=== PATIENT | male | born 1960 | race Caucasian/White ===

== ENCOUNTER 2021-01-08 12:53 | Outpatient (REF) | payer OTHER, SELFPAY ==
--- NOTE | ~2021-01-08 | XR_ITS ---
EXAMINATION: XR CHEST CLINICAL INFORMATION: R05.9 - Cough, unspecified COMPARISON: None TECHNIQUE: 2 views of the chest were obtained. FINDINGS: There is mild coarsening bronchovascular markings right base with subtle increased attenuation suspicious for early infiltrate. There are no air bronchograms. The remainder of the lungs are clear. There is no effusion. The heart is normal in size. The costophrenic sulci are clear. The vascularity is normal. The hilar and mediastinal contours are unremarkable. There is been prior rodding thoracolumbar spine. XR/XR chest 2V IMPRESSION: Mild coarsening bronchovascular markings right base with subtle increased attenuation suspicious for early infiltrate. No effusion.
[2021-01-08 14:42] LABS: Influenza A PCR NEGATIVE (Negative); Influenza B PCR NEGATIVE (Negative); Resp Syncy Virus RNA Qual PCR NEGATIVE (Negative); SARS COV2 PCR INHOUSE NEGATIVE (Negative)
== END 2021-01-08 12:54 | disposition home or self-care (01) ==
LOC: HO.LAB 12:53
PROVIDERS: Visit Provider Physician Assistant Medical
DX: J06.9 Acute upper respiratory infection, unspecified (principal); R05.9 Cough, unspecified; Z20.822 Contact with and (suspected) exposure to COVID-19
CPT/HCPCS: 0241U; 36415; 71046

== ENCOUNTER 2021-01-08 13:02 | Outpatient (REF) | payer OTHER, SELFPAY | END 2021-01-08 13:03 | disposition home or self-care (01) | LOC: HO.HMGCX 13:02 | PROVIDERS: PCP Internal Medicine; Visit Provider Physician Assistant Medical | DX: Z13.89 Encounter for screening for other disorder (principal) ==

== ENCOUNTER 2021-05-27 14:01 | Outpatient (REF) | payer OTHER, SELFPAY ==
--- NOTE | ~2021-05-27 | XR_ITS ---
EXAMINATION: XR CHEST CLINICAL INFORMATION: Chest pain. COMPARISON: Chest 01/08/2021 TECHNIQUE: 2 views of the chest were obtained. FINDINGS: The lungs are well-expanded and clear. The heart size and pulmonary vascularity is normal. There is a solitary [place] extending from upper thoracic spine to the lumbar spine with the distal end not in the [id number]. Moderate dextro scoliosis dorsal lumbar spine is noted. XR/XR chest 2V IMPRESSION: No acute cardiopulmonary process seen. There is moderate dextroscoliosis dorsolumbar spine.
== END 2021-05-27 14:02 | disposition home or self-care (01) ==
LOC: HO.HMGCX 14:01
PROVIDERS: Visit Provider Internal Medicine
DX: R07.9 Chest pain, unspecified (principal)
CPT/HCPCS: 71046

== ENCOUNTER 2024-04-29 12:08 | Outpatient (REF) | payer OTHER, SELFPAY ==
[2024-04-29 16:21] LABS: Influenza A PCR POSITIVE (Negative); Influenza B PCR NEGATIVE (Negative); Resp Syncy Virus RNA Qual PCR NEGATIVE (Negative); SARS COV2 PCR INHOUSE NEGATIVE (Negative)
== END 2024-04-29 12:09 | disposition home or self-care (01) ==
LOC: HO.LNP 12:08
PROVIDERS: PCP Internal Medicine; Visit Provider Physician Assistant
DX: R09.89 Other specified symptoms and signs involving the circulatory and respiratory systems (principal); R05.9 Cough, unspecified; R06.02 Shortness of breath
CPT/HCPCS: 0241U; 99212

== ENCOUNTER 2024-04-29 12:08 | Outpatient (AMB) | payer OTHER, SELFPAY ==
--- NOTE | 2024-04-29 12:16 | AM.OFFWIN_ITS ---
Intake Vital Signs 04/29/24 12:25 BP 140/100 H Blood Pressure Location Rt brachial Position Sitting Pulse 130 H Pulse Source Pulse Oximeter Pulse Oximetry (%) 96 Oxygen Delivery Method Room Air Intake Visit Reasons: EP-severe cough, sob Allergies No Known Allergies Allergy (Verified 05/27/21 13:38) HPI HPI Comments History of Present Illness Details 63 year old male presents w/ URI sx x 2- 3 days. Fatigue, malaise, myalgias and cough. He reports whats bothering him most is the cough. He doesnt feel well at all he states. Feels like his yearly cold. He reports he is coughing so much he feels like hes going to vomit. No sick contacts. No CP, headache, vision changes, dizziness, weakness, fevers, chills PE diminished bs b/l, bibasilar crackles and wheezing Hx and pe concerning for bronchitits, vs viral illness. No signs of acs, pe, ards, pna. Plan- viral test, will send atbx, steroids, inhaler. Return w/ new or worsening sx. or go to the ED Review of Systems Const All systems reviewed & are unremarkable except as noted in HPI and below Physical Exam Vital Signs: vss ambulatory O2 94% Appearance: Alert.? Oriented X3.? No acute distress.? Head: Normocephalic, atraumatic, no step-offs or deformities Eyes: Pupils equal, round and reactive to light.? CVS: Normal heart rate and rhythm.? Pulses normal.? Respiratory: No respiratory distress.? Breath sounds diminished b/l, faint bibasilar crackles and expiratory wheezing b/l.? Abdomen: Soft and nontender.? Skin: Skin warm and dry.? Normal skin color.? Normal skin turgor.? Extremities: No lower extremity edema.? No calf ttp. 5/5 strength to bilateral upper and lower extremities Neuro: Oriented X 3.? No motor deficit.? No sensory deficit. CN 2-12 intact Assessment & Plan Assessment & Plan (1) Bronchitis: Code(s): J40 - Bronchitis, not specified as acute or chronic Plan Take your medications as prescribed. If you were prescribed antibiotics today, it is important that you take your medication to their entirety, do not skip any doses, do not finish them early. Follow-up with your primary care provider this week. Return to the emergency department with new or worsening symptoms. In case of emergency call 911 Orders: Orders SARS-CoV2/FLU/RSV Today R09.89 - Other specified symptoms and signs involving the circulatory and respiratory systems Medications: New doxycycline hyclate 100 mg PO BID 14 caps 0RF 7 days prednisone 20 mg PO DAILY 5 tabs 0RF 5 days albuterol sulfate 90 mcg/actuation 2 puffs inhalation Q6H PRN 6.7 grams 0RF shortness of breath or wheezing Coding Level of Care Code Est Pt Level 3 (49238) Diagnoses Bronchitis J40
[2024-04-29 12:25] VITALS: BP 140/100; PULSE 130; O2SAT 96
== END 2024-04-29 12:45 | disposition home or self-care (01) ==
PROVIDERS: PCP Internal Medicine; Visit Provider Physician Assistant
DX: J40 Bronchitis, not specified as acute or chronic (principal)